=== PATIENT | female | born 1960 | race Caucasian/White ===

== ENCOUNTER 2017-03-23 11:13 | Emergency (ER) | payer OTHER ==
[2017-03-23 11:18] VITALS: O2SAT 97
[2017-03-23 11:52] LABS: % IMMATURE GRANULYOCYTES 0.2 % (0.0-1.1); ABSOLUTE IMMATURE GRANULOCYTES 0.01 10^3/uL (0.00-0.10); ADD DIFF? NO; ADD MORPH? NO; ADD SCAN? NO; ATYPICAL LYMPHOCYTE FLAG 0 (0-99); FRAGMENT RBC FLAG 0 (0-99); HEMATOCRIT 39.6 % (38.0-47.0); HEMOGLOBIN 13.9 g/dL (12.6-16.3); LEFT SHIFT FLG 0 (0-99); LIPEMIA HEMOLYSIS FLAG 90 (0-99); MEAN CELL HEMOGLOBIN 31.9 pg (27.9-34.1); MEAN CELL HEMOGLOBIN CONCENTR. 35.1 g/dL (32.4-36.7); MEAN CELL VOLUME 90.8 fL (81.5-99.8); MEAN PLATELET VOLUME 10.4 fL (8.7-11.7); PLATELET CLUMPS FLAG 0 (0-99); PLATELET COUNT 219 10^3/uL (150-400); RED BLOOD CELL COUNT 4.36 10^6/uL (4.18-5.33)
[2017-03-23 12:00] LABS: INR 0.92 (0.83-1.16); PROTIME(PATIENT) 12.3 SEC (12.0-15.0)
[2017-03-23 12:01] LABS: APTT 28.6 SEC (23.0-38.0)
[2017-03-23 12:02] LABS: ALANINE AMINOTRANSFERASE 39 IU/L (9-52); ALBUMIN 4.5 g/dL (3.5-5.0); ALKALINE PHOSPHATASE 93 IU/L (38-126); ANION GAP 10 mEq/L (8-16); ASPARTATE AMINOTRANSFERASE 35 IU/L (14-46); BILIRUBIN,TOTAL 0.8 mg/dL (0.1-1.4); BILIRUBIN-CONJUGATED 0.3 mg/dL (0.0-0.5); BILIRUBIN-UNCONJUGATED 0.5 mg/dL (0.0-1.1); CARBON DIOXIDE 25 mEq/l (22-31); CHLORIDE 103 mEq/L (97-110); CREATININE 0.9 mg/dL (0.6-1.0); GLOMERULAR FILTRATION RATE > 60; GLUCOSE 90 mg/dL (70-100); POTASSIUM 4.1 mEq/L (3.5-5.2); SODIUM 138 mEq/L (134-144); TOTAL PROTEIN 7.3 g/dL (6.3-8.2)
[2017-03-23] MEDS ORDERED: NS 1,000 ML IV ONE (12:09)
[2017-03-23] MEDS ORDERED: ONDANSETRON 4 MG/2 ML VIAL IVP ONE (12:09)
[2017-03-23] MEDS ORDERED: KETOROLAC 30 MG/1 ML SDV IVP ONE (12:10)
[2017-03-23] MEDS ORDERED: IOPAMIDOL (ISOVUE-300) 100 ML BTL ONE (12:22)
--- NOTE | 2017-03-23 13:13 | EDPHY ---
H & P Stated Complaint: RLQ Pain HPI/ROS: CHIEF COMPLAINT: Right lower quadrant pain HISTORY OF PRESENT ILLNESS: Patient complains of right lower quadrant abdominal pain. This started approximately 7 days ago. It has been constant duration. [id number] 1st a and worsened to severe this morning. Worse with palpation and movement. Associated with some hematuria last week. She was seen for this and treated for UTI with unrecalled antibiotic. She has had no relief from this medication. She has no nausea or vomiting. No constipation or diarrhea. No bloody stools. No fever or chills. Pain is significantly worsened today than yesterday. No other associated complaints or modifying factors. PREVIOUS ABDOMINAL SURGERIES/DIAGNOSES: Tubal ligation, tonsillectomy, varicose vein NPO: Solids last evening REVIEW OF SYSTEMS: Ten systems reviewed and are negative unless otherwise noted in the HPI EXAMINATION: General Appearance: Alert, no distress Head: normocephalic, atraumatic. Liquids this morning at 10:00 a.m. Eyes: Pupils equal and round, no conjunctival pallor or injection ENT, Mouth: Mucous membranes moist Neck: Normal inspection, supple, non-tender Respiratory: Lungs are clear to auscultation Cardiovascular: Regular rate and rhythm Gastrointestinal: Abdomen is soft. Tender palpation right lower quadrant. Guarding right lower quadrant. No distention. No CVA tenderness. No tympany. No rigidity. Non-acute abdomen. Back: non-tender, no bony abnormalities Neurological: A&O, nonfocal, normal gait Skin: Warm and dry, no rash Extremities: Nontender, no pedal edema Psychiatric: Mood and affect normal DIFFERENTIAL DIAGNOSES: Including but not limited to appendicitis, ureteral stone, cystitis, colitis, diverticulitis, ovarian torsion, ovarian cyst, tubo-ovarian abscess MDM: 12:10 p.m. Right lower quadrant abdominal pain with examination that suggest ureteral stone versus is acute appendicitis. Vital signs are stable. Pain meds the ordered. Laboratory studies are pending I have ordered CT scan of the abdomen pelvis. 1:10 p.m. Case discussed with Radiologist Dr. Brewster. No acute findings. There is some stool noted in the bowel. There is incidental note of likely hemangiomas that he recommends follow up on in 6 months for further information. I have re- evaluated the patient. She is feeling significantly better at this time with the morphine. I have ordered an ultrasound of the pelvis to rule out torsion or other pathology. 2:28 p.m. Notified by radiologist Dr. Menendez. Ultrasound of the pelvis reveals evidence of pelvic congestion. The ovaries are not well visualized but there is no adnexal mass or swelling. No other acute finding noted. 2:45 p.m. I have re-evaluated the patient. Her pain is minimal at this time. She is tolerating it without any further medication. We discussed the possibility of other etiologies of her pain. There is no evidence of acute appendicitis, torsion, colitis, diverticulitis, ureterolithiasis or hydronephrosis. We discussed short course of pain medication and stool softeners for the possibility of constipation. She is to follow up with primary care physician and GI physician for further care. Return here for worsening symptoms. She is comfortable with this plan and discharged home stable condition. ED Precautions: Worsening pain. Fever. Bloody stools. Bloody emesis. Constipation or diarrhea. SUPERVISION: Patient was evaluated in conjunction with the supervising physician. Please see their note for details. Source: Patient, Family Exam Limitations: No limitations - Personal History Current Tetanus Diphtheria and Acellular Pertussis (TDAP): Yes - Medical/Surgical History Hx Asthma: No Hx Chronic Respiratory Disease: No Hx Diabetes: No Hx Cardiac Disease: No Hx Renal Disease: No Hx Cirrhosis: No Hx Alcoholism: No Hx HIV/AIDS: No Hx Splenectomy or Spleen Trauma: No Other PMH: varicose vein surgery, tubal ligation - Social History Smoking Status: Never smoked Constitutional: Initial Vital Signs Temperature (C) 97.7 F 03/23/17 11:15 Heart Rate 70 03/23/17 11:15 Respiratory Rate 18 03/23/17 11:15 Blood Pressure 114/54 L 03/23/17 11:15 O2 Sat (%) 97 03/23/17 11:15 O2 Delivery Mode Room Air Allergies/Adverse Reactions: codeine Allergy (Verified 09/14/16 16:58) Home Medications: Medication Instructions Recorded [place] cap PO DAILY 09/14/16 CO Q-10 cap PO DAILY 09/14/16 Evening [place] cap PO DAILY 09/14/16 Multivitamin 1 tab PO DAILY 09/14/16 Ondansetron Odt [Zofran Odt 4 mg 4 mg PO Q6 PRN #12 tab 03/23/17 (*)] Sennosides [Senna] 8.8 mg PO DAILY #15 ml 03/23/17 traMADol [Ultram 50 mg (*)] 50 mg PO Q4 PRN #12 tab 03/23/17 Medical Decision Making - Diagnostics Imaging Results: Imaging Impressions Abdomen CT 03/23/17 12:09 Impression: 1. Mild constipation. 2. No CT evidence of appendicitis, abscess, or bowel obstruction. 3. No adnexal masses or free fluid in the pelvis. 4. A hyperenhancing hepatic 1 cm lesion which may represent regional enhancement or atypical hemangioma with a second hypodense lesion which may represent cyst or atypical hemangioma without definite suspicious hepatic lesions. Consider follow-up ultrasound imaging in 3-6 months. Findings and recommendations discussed with Emergency Department physician's telecom assistant, Vicente Martines, at 1308 hours, 03/23/2017. Final report concurs with initial preliminary interpretation. - Data Points Laboratory Results: Laboratory Results 03/23/17 11:42 03/23/17 11:42 03/23/17 03/23/17 03/23/17 11:42 11:42 11:42 WBC 4.64 10^3/uL 10^3/uL (3.80-9.50) RBC 4.36 10^6/uL 10^6/uL (4.18-5.33) Hgb 13.9 g/dL g/dL (12.6-16.3) Hct 39.6 % % (38.0-47.0) MCV 90.8 fL fL (81.5-99.8) MCH 31.9 pg pg (27.9-34.1) MCHC 35.1 g/dL g/dL (32.4-36.7) RDW 12.0 % % (11.5-15.2) Plt Count 219 10^3/uL 10^3/uL (150-400) MPV 10.4 fL fL (8.7-11.7) Neut % (Auto) 51.9 % % (39.3-74.2) Lymph % (Auto) 37.7 % % (15.0-45.0) [place] % (Auto) 8.2 % % (4.5-13.0) Eos % (Auto) 1.1 % % (0.6-7.6) Baso % (Auto) 0.9 % % (0.3-1.7) Nucleat RBC Rel Count 0.0 % % (0.0-0.2) Absolute Neuts (auto) 2.41 10^3/uL 10^3/uL (1.70-6.50) Absolute Lymphs (auto) 1.75 10^3/uL 10^3/uL (1.00-3.00) Absolute Monos (auto) 0.38 10^3/uL 10^3/uL (0.30-0.80) Absolute Eos (auto) 0.05 10^3/uL 10^3/uL (0.03-0.40) Absolute Basos (auto) 0.04 10^3/uL 10^3/uL (0.02-0.10) Absolute Nucleated RBC 0.00 10^3/uL 10^3/uL (0-0.01) Immature Gran % 0.2 % % (0.0-1.1) Immature Gran # 0.01 10^3/uL 10^3/uL (0.00-0.10) PT 12.3 SEC SEC (12.0-15.0) INR 0.92 (0.83-1.16) APTT 28.6 SEC SEC (23.0-38.0) Sodium 138 mEq/L mEq/L (134-144) Potassium 4.1 mEq/L mEq/L (3.5-5.2) Chloride 103 mEq/L mEq/L (97-110) Carbon Dioxide 25 mEq/l mEq/l (22-31) Anion Gap 10 mEq/L mEq/L (8-16) BUN 12 mg/dL mg/dL (7-23) Creatinine 0.9 mg/dL mg/dL (0.6-1.0) Estimated GFR > 60 Glucose 90 mg/dL mg/dL (70-100) Calcium 10.0 mg/dL mg/dL (8.5-10.4) Total Bilirubin 0.8 mg/dL mg/dL (0.1-1.4) Conjugated Bilirubin 0.3 mg/dL mg/dL (0.0-0.5) Unconjugated Bilirubin 0.5 mg/dL mg/dL (0.0-1.1) AST 35 IU/L IU/L (14-46) ALT 39 IU/L IU/L (9-52) Alkaline Phosphatase 93 IU/L IU/L (38-126) Total Protein 7.3 g/dL g/dL (6.3-8.2) Albumin 4.5 g/dL g/dL (3.5-5.0) Lipase 121.0 IU/L IU/L (23-300) Medications Given: Discontinued Medications Sodium Chloride (Ns) 1,000 mls @ 0 mls/hr IV ONCE ONE; Wide Open PRN Reason: Protocol Stop: 03/23/17 12:10 Last Admin: 03/23/17 12:10 Dose: 1,000 mls Ketorolac Tromethamine (Toradol) 15 mg IVP EDNOW ONE Stop: 03/23/17 12:11 Last Admin: 03/23/17 12:25 Dose: 15 mg Morphine Sulfate (Morphine) 4 mg IVP EDNOW ONE Stop: 03/23/17 12:10 Last Admin: 03/23/17 12:25 Dose: 2 mg Ondansetron HCl (Zofran) 4 mg IVP EDNOW ONE Stop: 03/23/17 12:10 Last Admin: 03/23/17 12:25 Dose: 4 mg Departure - Departure Disposition: Home, Routine, Self-Care Clinical Impression: Abdominal pain Qualifiers: Abdominal location: right lower quadrant Qualified Code(s): R10.31 - Right lower quadrant pain Condition: Good Instructions: Abdominal Pain (ED) Additional Instructions: Follow-up with primary care physician. Discussed with them the possibility of GI follow-up. Return here for any worsening pain, fever, vomiting, diarrhea constipation Referrals: Maryjane Coker MD [Primary Care Provider] - As per Instructions Johnathan Saini MD [Medical Doctor] - As per Instructions Prescriptions: Ondansetron Odt [Zofran Odt 4 mg (*)] 4 mg PO Q6 PRN #12 tab PRN Reason: Nausea/Vomiting, Use 1st Sennosides [Senna] 8.8 mg PO DAILY #15 ml traMADol [Ultram 50 mg (*)] 50 mg PO Q4 PRN #12 tab PRN Reason: Pain, Mild
[2017-03-23 14:28] VITALS: RESP 16
[2017-03-23 14:29] VITALS: BP 108/59
[2017-03-23 14:40] LABS: COLOR YELLOW; LEUKOCYTE ESTERASE,URINE NEGATIVE (NEGATIVE); NITRITE,URINE NEGATIVE (NEGATIVE)
[2017-03-23 14:56] LABS: RBC,URINE 25-50 /hpf (0-3)
[2017-03-23 15:03] LABS: WBC,URINE NONE SEEN /hpf (0-3)
[2017-03-23 15:18] VITALS: PULSE 65; TEMP 97.9
== END 2017-03-23 15:18 | disposition home or self-care (01) ==
DX: R10.31 Right lower quadrant pain (principal); Z98.51 Tubal ligation status
CPT/HCPCS: 96374; J1885; J2405; Q9967